=== PATIENT | female | born 1935 | race Caucasian/White ===

== ENCOUNTER 2024-07-13 10:54 | Emergency (ER) | payer OTHER, SELFPAY ==
[2024-07-13 11:21] VITALS: BP 129/59
[2024-07-13 13:15] VITALS: BP 158/63
[2024-07-13 14:00] VITALS: BP 167/58
--- NOTE | 2024-07-13 14:14 | ED.GENMED ---
History of Present Illness
General
Chief Complaint: Visual Problem
Source: patient
Exam Limitations: none
Time Seen by Provider: 07/13/24 13:42
History of Present Illness
History of Present Illness:
88-year-old female with history of dementia presents from [facility] care unit with complaints of blurry vision out of the right eye. Patient denies any headache or pain in the eye. She is uncertain of the onset. This is allegedly a new
symptom however. She denies any unilateral numbness or weakness in the arms or legs. She has no trouble speaking. No other complaints at this time. She cannot recall any other history of with her eyes.
Phy Exam
Physical Exam
Physical Exam:
General: Well-appearing female no acute respiratory distress
HEENT: Normocephalic atraumatic pupils equal round reactive to light right cornea seems somewhat hazy compared to the left. There is some mild scleral injection of the right eye. Funduscopic exam to my ability within normal limits. No corneal
abrasions noted with fluorescein stain. There is increased pressure in the right eye averaging around 50 mmHg. To 20 mmHg out of the left. There is no ptosis. Extraocular motions are intact. She has 20/30 vision out of her left eye and unable
to make out any objects on the chart with her right eye
Neurologic exam: Alert oriented to person only. No facial asymmetry or slurred speech no drift on exam finger-nose [id number] intact. Heart: Regular rate and rhythm no murmur
Lungs: Clear no wheeze
Course
Orders/Labs/Results
Orders:
Orders
07/13/24 13:54
Tetracaine HCl [Tetracaine 0.5% Ophthalmic Solution] 1 drop .ROUTE .STK-MED ONE
07/13/24 13:55
Fluorescein Sodium [Ful-Grecia] 1 mg .ROUTE .STK-MED ONE
Purified Water Eye Wash [Dacriose Eye Wash Solution] 120 ml .ROUTE .STK-MED ONE
07/13/24 14:22
CT Head W/o Iv Contrast Urgent
Comment:
Reason For Exam: vision change
07/13/24 14:43
Complete Blood Count/With Diff Urgent
Comprehensive Metabolic Panel Urgent
Abnormal Lab Results
07/13/24
14:43
RBC 4.19 L 10^6/uL
(4.20-5.40)
MCH 31.3 H pg
(27.0-31.0)
MPV 11.0 H fL
(7.4-10.4)
07/13/24 14:43
07/13/24 14:43
Vital Signs
Initial and Last Documented VS:
Initial Vital Signs
Temp Pulse Resp BP Pulse Ox
97.7 F 56 16 129/59 99
07/13/24 11:21 07/13/24 11:21 07/13/24 11:21 07/13/24 11:21 07/13/24 11:21
Last Documented Vital Signs
Temp Pulse Resp BP Pulse Ox
97.7 F 75 16 157/59 95
07/13/24 11:21 07/13/24 15:51 07/13/24 15:51 07/13/24 16:00 07/13/24 15:52
MDM/Problems Addressed
Differential Diagnosis Includes:
Patient with blurry vision out of right eye this is painless. Concern for possible glaucoma given elevated pressures on exam. Reviewed medicine from facility and the patient is not on any drops for any eye conditions. Reach out to the
ophthalmology for recommendations. Do not suspect CVA. She is on aspirin and Plavix per the medicine list
*Critical Care Note
Total Time (30-74mins, 75-104mins- exclusive of procedures): Not Applicable
Update Note
Update Note:
Discussed with ophthalmology. He was able to see that the patient was in their office in May of last year for similar blurry vision out of the right eye. The staff at the facility was concerned for potential stroke given her history of
stroke. She is on aspirin and Plavix. Her pressures on her exam measured on average 50 mmHg of the right eye and 20 mm out of the left eye. She has a painless exam. Do not suspect CVA. Ophthalmology recommended Xalatan one drop QHS for elevated
pressure and she will be discharged with follow-up with ophthalmology
ED Attending Note
-
Portions of this chart may have been created with voice recognition software.� Occasional wrong word or��sound alike� substitutions may have occurred due to the inherent limitations of voice recognition software.
Discharge Plan
Departure
Patient Disposition: Home (Routine Discharge)
Date of Disposition: 07/13/24
Time of Disposition: 17:15
Patient with high blood pressure during this ER visit?: No
Discharge Problem:
Blurred vision
Prescriptions:
New
latanoprost [Xalatan] 0.005 % drops
1 drp ophthalmic (eye) QPM Qty: 2.5 0RF
Referrals:
Laura Peralta MD [Family Provider] -
Activity Restrictions/Additional Instructions:
Patient was evaluated here for blurry vision out of the right eye. We suspect this is more of an eye issue perhaps due to elevated pressures in her eye. Per ophthalmology recommendation she should use Xalatan drops 1 drop at bedtime and follow-up
with ophthalmology. Return if needed otherwise.
Interventions
Interventions:
*Risk Screen - Suicide Last Done: 07/13/24 13:59
*General Assessment Last Done: 07/13/24 15:12
*Neglect/Abuse Screening Last Done: 07/13/24 13:59
ED- Fall Risk Assessment Last Done: 07/13/24 15:34
*ED COVID-19 Vaccine History Last Done: 07/13/24 13:59
ED- Neurological Assessment Last Done: 07/13/24 13:17
ED-EENT Assessment Last Done: 07/13/24 14:17
Discharge Date and Time
Print Language: BRAZILIAN
--- NOTE | 2024-07-13 14:23 | EDRN ---
Pt could not make out any letters as they were all blurry. She could see the sign
[2024-07-13 14:50] LABS: % Basophils 0.5 % (0-2); % Eosinophils 2.8 % (0-6); % Immature Granulocytes 0.2 % (0-0.5); % Lymphocytes 27.6 % (20.5-51.1); % Neutrophils 59.9 % (42.2-75.2); Absolute Eosinophils 0.2 10^3/uL (0-0.7); Absolute Lymphocytes 1.6 10^3/uL (1.2-3.4); Absolute Monocytes 0.5 10^3/uL (0.1-0.6); Absolute Neutrophils 3.4 10^3/uL (1.4-6.5); Hematocrit 39.7 % (37.0-47.0); Hemoglobin 13.1 g/dL (12.0-16.0); Mean Corpuscular Hgb 31.3 pg (27.0-31.0); Mean Corpuscular Volume 94.7 fL (81.0-99.0); Nucleated Red Blood Cells % 0 %; Platelet Count 192 10^3/uL (130-400); Red Blood Cell Count 4.19 10^6/uL (4.20-5.40); Red Cell Dist. Width 13.6 % (11.5-14.5); White Blood Cell Count 5.7 10^3/uL (4.8-10.8)
[2024-07-13 15:14] LABS: ALT (SGPT) 17 U/L (0-35); AST (SGOT) 23 U/L (14-36); Albumin 4.5 g/dl (3.5-5.0); Alkaline Phosphatase 71 U/L (38-126); Blood Urea Nitrogen 15 mg/dl (7-17); Calcium 10.2 mg/dl (8.4-10.2); Carbon Dioxide 29 mmol/L (22-30); Chloride 101 mmol/L (98-107); Glucose 99 mg/dl (70-99); Potassium 4.1 mmol/L (3.5-5.1); Sodium 136 mmol/L (135-145); Total Bilirubin 0.9 mg/dl (0.2-1.3); Total Protein 6.4 g/dl (6.3-8.2); eGFR > 60.00
[2024-07-13 16:00] VITALS: BP 157/59
== END 2024-07-13 19:48 ==
LOC: EMR 10:54
PROVIDERS: Physician Assistant; EMERGENCY PHYSICIAN Student in an Organized Health Care Education/Training Program; FAMILY PHYSICIAN Internal Medicine Geriatric Medicine
DX: H53.8 Other visual disturbances (principal); F03.90 Unspecified dementia, unspecified severity, without behavioral disturbance, psychotic disturbance, mood disturbance, and anxiety; Z86.73 Personal history of transient ischemic attack (TIA), and cerebral infarction without residual deficits; Z79.02 Long term (current) use of antithrombotics/antiplatelets; Z79.82 Long term (current) use of aspirin
CPT/HCPCS: 99284; 70450; 80053; 85025